=== PATIENT | female | born 1990 ===

== ENCOUNTER 2021-04-29 20:04 | Emergency (ER) | payer OTHER ==
[~2021-04-29] VITALS: Ht 157.5 cm; Wt 63.6 kg
[2021-04-29 20:08] VITALS: BP 114/62
== END 2021-04-29 22:34 | disposition left against medical advice (07) ==
LOC: EMS 20:06
DX: M25.512 Pain in left shoulder (principal); Z53.21 Procedure and treatment not carried out due to patient leaving prior to being seen by health care provider